=== PATIENT | male | born 1985 | race Caucasian/White ===

== ENCOUNTER 2025-10-27 20:43 | Emergency (ER) | payer OTHER, SELFPAY ==
[2025-10-27 20:44] VITALS: BP 115/93; PULSE 102; RESP 16; TEMP 36.7; O2SAT 100; BMI 34.9
--- NOTE | 2025-10-27 20:58 | ED.VIS.LOWEX ---
HPI History of Present Illness HPI Narrative: Patient presents with redness and swelling to his left knee and lower leg that has been getting worse over the past 5 days. Patient thinks he may have been bitten by something. Patient admits to some subjective fevers. Patient admits to some burning and stabbing pain in his left knee. Patient states it is worse with palpation and with walking. Patient states it is better with rest. Patient denies any paresthesias or weakness. Chief Complaint: Lower Extremity Injury Informant: patient Onset/Context/Timing Onset: Days (5) Context: Gradual Onset Timing: Continuous Quality of Pain: Burning and Stabbing Location: Left knee and lower leg Worsened by: Weightbearing, palpation Relieved by: Rest Associated Symptoms Associated Symptoms: Negative for Parasthesia, Weakness or Loss of Funtion [facility] Medical History (Updated 10/27/25 @ 22:[address] Ponce Calix, ) Anxiety Depression Home Medications ?Medication ?Instructions ?Recorded ?Last Taken ?Type cephalexin 500 mg capsule 500 mg PO Q6 #40 CAPSULES 10/27/25 Unknown Rx Allergy/AdvReac Type Severity Reaction Status Date / Time No Known Allergies Allergy Verified 10/27/25 20:47 Surgical History no surgical history no surgical history Social History (Updated 10/27/25 @ 21:[address] Ponce Calix, DO) Smoking Status: Current every day smoker tobacco type: e-cigarettes Electronic Cigarette Use: with nicotine alcohol intake: current alcohol intake frequency: a few times a month ROS ROS ED Constitutional Constitutional ED: Reports fever(s) and subjective; Denies chills Eyes Eyes: Denies blurry vision or change in vision ENT ENT ED: Denies rhinorrhea or sore throat Cardiovascular Cardiovascular: Denies chest pain or palpitations Respiratory/Chest Respiratory/Chest: Denies cough or dyspnea Gastrointestinal Gastrointestinal: Denies nausea or vomiting Genitourinary Genitourinary ED: Denies dysuria or hematuria Musculoskeletal Musculoskeletal: Reports neck pain; Denies back pain Integumentary Denies abscess or rash Neurologic Neurologic: Denies headache(s) or weakness Allergic/Immunologic Allergic/Immunologic ED: Denies mouth swelling or urticaria EXAM Physical Exam Const Vital Signs: 10/27/25 20:44 10/27/25 21:22 Temperature 98.1 F 98.6 F Temperature Source Temporal Oral Pulse Rate 102 H Respiratory Rate 16 Blood Pressure 115/93 H Blood Pressure Mean 100 Pulse Ox 100 Oxygen Delivery Method Room Air Positive well nourished and well developed Constitutional Narrative: BMI is 35.0. General Appearance ED: well developed and NAD HEENT normocephalic and atraumatic Neck full ROM Extremity Extremity Narrative: There is some erythema and warmth over the anterior aspect of the left knee and lower leg. There is a small pustule over the anterior aspect of the left knee. Range of motion was slightly limited in flexion of the left knee secondary to pain. There is no pain with short arc range of motion. There is no joint effusion noted. There is mild tenderness over the anterior aspect of the lower leg. There is no calf tenderness. Sensation was intact to light touch in the lower extremities. There is good range of motion of the left ankle. There is a good posterior tibial pulse palpated. Neuro oriented x3, CN's II-XII intact bilaterally, moves all extremities and no sensory deficits noted Sensorium / Orientation: alert Motor Exam: strength 5/5 throughout Psych mental status grossly normal MDM MDM MDM Narrative Medical decision making narrative: Patient was advised that this is most likely a cellulitis. CBC will be obtained to assess for leukocytosis and anemia. Basic metabolic profile will be obtained to assess for electrolyte abnormality and renal function. Lab Data Attestation: I reviewed the patient's lab results. Lab results narrative: CBC was reviewed and was within normal limits. Basic metabolic profile was reviewed and was within normal limits. Labs: Laboratory Results - last 24 hr 10/27/25 21:15 WBC 9.5 RBC 4.52 L Hgb 13.8 Hct 41.9 MCV 92.7 MCH 30.5 MCHC 32.9 RDW Std Deviation 41.8 RDW Coeff of Bessy 12.2 Plt Count 312 MPV 9.1 Immature Gran % (Auto) 0.500 Neut % (Auto) 59.8 Lymph % (Auto) 25.1 [place] % (Auto) 12.7 H Eos % (Auto) 1.4 Baso % (Auto) 0.5 Absolute Neuts (auto) 5.7 Absolute Lymphs (auto) 2.39 Nucleated RBC % 0 Sodium 137 Potassium 4.0 Chloride 101 Carbon Dioxide 22.1 Anion Gap 14 BUN 13 Creatinine 1.07 Estim Creat Clear Calc 112.03 Est GFR (MDRD) Non-Af 89 BUN/Creatinine Ratio 12.1 Glucose 125 H Calcium 8.9 Treatment and Re-Evaluation Narrative: Patient was given a dose of Ancef here. Patient was given a prescription for Keflex. Bacitracin dressing was applied to the left knee. Patient was instructed to continue Tylenol or ibuprofen as needed for any fevers. Patient was instructed to follow-up with his primary care physician in 5 to 7 days. Patient was instructed to watch for signs of worsening infection. Patient understood and was agreeable with plan. All questions were answered. Discharge Plan Triage Chief Complaint: Lower Extremity Injury ED Provider: Ponce Calix Dx/Rx/DC Orders Clinical Impression: Cellulitis of left lower extremity from knee to ankle, Elevated blood pressure reading without diagnosis of hypertension Instructions: ED Cellulitis Prescriptions: New cephalexin 500 mg capsule 500 mg PO Q6 Qty: 40 0RF Primary Care Provider: Care Physician,No Primary Referrals: Ashley Tang MD [Med Staff - Employment Program Representative, Family Practice] - 5-7 Days Care Physician,No Primary [Primary Care Provider, Medical] Print Language: Kinyarwanda Disposition Disposition: Home, Self Care
[2025-10-27] MEDS: Cefazolin 1 GM/50 ML BAG IV (21:21)
[2025-10-27 21:22] VITALS: TEMP 37
[2025-10-27 21:30] LABS: Hematocrit 41.9 % (40-54); Hemoglobin 13.8 g/dL (13.0-16.5); Immature Granulocytes Count 0.050 X10^3/uL (0.0-0.0); Mean Corp Hgb Conc 32.9 g/dL (32-36); Mean Corpuscular Volume 92.7 fL (80-94); Mean Platelet Vol. 9.1 fl (6.2-12.0); NRBC Flagged by Analyzer 0 % (0-5); Platelet Count 312 K/mm3 (150-450); RBC Distribution Width CV 12.2 % (11.6-14.6); RBC Distribution Width SD 41.8 fl (35.1-43.9); Red Blood Count 4.52 M/mm3 (4.6-6.2); White Blood Count 9.5 K/mm3 (4.4-11.0)
[2025-10-27 22:11] LABS: Anion Gap 14 (5-15); BUN 13 mg/dL (4-19); BUN/Creat Ratio 12.1 RATIO (10-20); Calcium,Total 8.9 mg/dL (7.6-11.0); Carbon Dioxide 22.1 mmol/L (21.0-32.0); Chloride 101 mmol/L (98-108); Estimated Creatinine Clearance 112.03 ml/min (50-250); Glucose 125 mg/dL (70-99); Potassium 4.0 mmol/L (3.3-5.1)
[2025-10-27 22:36] VITALS: BP 126/72; PULSE 96; RESP 17; O2SAT 98
[2025-10-27 22:37] VITALS: BP 126/72; PULSE 96; RESP 17; TEMP 37; O2SAT 98
== END 2025-10-27 22:45 | disposition home or self-care (01) ==
PROVIDERS: Emergency Provider Emergency Medicine; Visit Provider Emergency Medicine
DX: L03.116 Cellulitis of left lower limb (principal); R03.0 Elevated blood-pressure reading, without diagnosis of hypertension; F17.290 Nicotine dependence, other tobacco product, uncomplicated
CPT/HCPCS: 80048; 85025; 96365; 99284; A4216